=== PATIENT | female | born 1970 | race African-American/Black ===

== ENCOUNTER 2023-08-09 09:57 | Emergency (ER) | payer MEDICARE, MEDICAID ==
[2023-08-09] VITALS (15 sets, daily range): BP systolic 123–172; BP diastolic 66–124
[~2023-08-09] VITALS: Ht 165.1 cm; Wt 90.7 kg
[~2023-08-09 09:57] MED LIST: CIPRO500 MG PO; FERROCITE PO; LOSARTAN POT25 MG PO; METFORMIN500 M1 PO; NO HOME MEDS; PRILOSEC40 MG PO
[2023-08-09 10:35] LABS: BASO% 0.7 % (0-3); EOS% 2.1 % (0-8); HEMATOCRIT 40.8 % (37.0-47.0); IMMATURE GRANULOCYTES 0.2 % (0.0-5.0); LYMPH% 32.8 % (15-41); MEAN CORPUSCULAR HGB 27.1 pG CALC (26.0-32.0); MEAN CORPUSCULAR HGB CONC 31.1 g/dL CAL (32.0-36.0); MONO% 6.7 % (2-13); NEUT# 5.31 thou/uL (2.00-7.15); NEUT% 57.5 % (42-76); RED BLOOD COUNT 4.68 mill/uL (4.20-5.60); RED CELL DISTRI WIDTH 15.3 % (11.5-15.5)
[2023-08-09 10:36] LABS: HEMOGLOBIN 12.7 g/dl (12.0-16.0); MEAN CELL VOLUME 87.2 fL CALC (80.0-100.0)
[2023-08-09 10:47] LABS: URINE BILIRUBIN - DIPSTICK Negative (NEGATIVE); URINE BLOOD DIPSTICK Large (NEGATIVE); URINE GLUCOSE - DIPSTICK Negative (NEGATIVE); URINE KETONE Negative (NEGATIVE); URINE LEUK ESTERASE Negative (NEGATIVE); URINE NITRITE - DIPSTICK Negative (Negative); URINE PH 6.5 (4.5-8.0); URINE PROTEIN - DIPSTICK 100 mg/dL (NEG-TRACE); URINE SPECIFIC GRAVITY 1.025
[2023-08-09 10:55] LABS: URINE COLOR Bloody
[2023-08-09 10:59] LABS: URINE RBC >100 RBC/hpf (0-5)
[2023-08-09 11:02] LABS: URINE SQUAMOUS EPITHELIAL CELL FEW EPI/hpf (0-FEW)
[2023-08-09 11:07] LABS: URINE BACTERIA RARE hpf; URINE WBC 50-100 WBC/hpf (0-5)
[2023-08-09 11:20] LABS: ALBUMIN 4.4 g/dL (3.2-5.0); ALKALINE PHOSPHATASE 115 u/l (38-126); ANION GAP 13 (6-22 (CALC)); BILIRUBIN, TOTAL 0.6 mg/dL (0.02-1.3); BUN 6 mg/dL (7-17); BUN/CREATININE RATIO 10 (12-20 (CALC)); CARBON DIOXIDE 27 mmol/l (22-30); CHLORIDE 106 mmol/l (95-108); CREATININE 0.7 mg/dL (0.5-1.0); GFR FOR AFR.AMER. > 60 ML/MIN (>=60 (CALC)); GFR OTHER RACES > 60 ML/MIN (>=60 (CALC)); POTASSIUM 3.8 mmol/l (3.5-5.1); SGOT/AST 30 u/l (14-36); SODIUM 142 mmol/l (137-146); TOTAL PROTEIN 8.5 g/dL (6.3-8.2)
== END 2023-08-09 15:19 | disposition home or self-care (01) ==
LOC: ED 09:57
PROVIDERS: Family Medicine
DX: D25.9 Leiomyoma of uterus, unspecified (principal); K57.32 Diverticulitis of large intestine without perforation or abscess without bleeding; K80.20 Calculus of gallbladder without cholecystitis without obstruction; M25.512 Pain in left shoulder; H91.90 Unspecified hearing loss, unspecified ear; E11.9 Type 2 diabetes mellitus without complications; K21.9 Gastro-esophageal reflux disease without esophagitis
CPT/HCPCS: Q9967